=== PATIENT | male | born 1975 | race Caucasian/White ===

== ENCOUNTER 2019-01-20 19:18 | Emergency (ER) | payer OTHER ==
[~2019-01-20] VITALS: Ht 188 cm; Wt 95.2 kg
[2019-01-20] MEDS ORDERED: VITAMIN D33000 UNIT PO (19:25)
--- NOTE | 2019-01-21 17:46 | EKG ---
[facility] [address] [facility] [place] [address] Signed Normal sinus rhythm Left axis deviation Abnormal ECG No previous ECGs available Confirmed by DAWN FERRARI DO ([id number]) on 01/21/2019 5:46:07 PM Electronically Signed By: DAWN FERRARI DO 01/21/19 1746 PATIENT NAME: MICHAELCHUCK SHASTASAVANNAH Electrocardiogram DATE OF : 75 PHYSICIAN: DAWN FERRARI DO REPORT #: [id number] REPORT IS CONFIDENTIAL AND NOT TO BE RELEASED WITHOUT AUTHORIZATION
== END 2019-01-20 20:31 | disposition home or self-care (01) ==
LOC: ED 19:18
DX: R07.89 Other chest pain (principal); Z87.891 Personal history of nicotine dependence; Z79.899 Other long term (current) drug therapy
CPT/HCPCS: 71045; 80053; 84484; 85025; 93005; 93010; 99285-25

== ENCOUNTER 2024-07-28 07:55 | Day surgery (SDC) | payer OTHER ==
[2024-07-26 09:26] VITALS: BP 132/87
[~2024-07-28] VITALS: Ht 185.4 cm; Wt 98.6 kg
[~2024-07-28 07:55] MED LIST: FIBER625 MG PO; IBLOOD GLUCOSE TEST STRIP 1 EA TEST VI PRN; LACTATED RINGER'S 1,000 ML IV SCH; LIDOCAINE HCL 1% 5 ML SDV INJ ONE; VITAMIN D33000 UNIT PO; propofoL 200 MG/20 ML VIAL ONE
[2024-07-28 08:28] VITALS: BP 149/103
[2024-07-28] MEDS ORDERED: ondansetron HCL 4 MG/2 ML VIAL ONE (09:06)
[2024-07-28] MEDS ORDERED: LACTATED RINGER'S 1,000 ML IV ONE (09:27)
--- NOTE | 2024-07-28 10:02 | NUR ---
07/28/24 Veronica Granados Joana 0932- PT PRESENTS TO PACU, LEFT LATERAL POSITION. OPA AND NPA IN LEFT NARE, BREATHING EVEN AND NON LABORED, O2 AT 6L PER MASK. ABD SOFT, NON DISTENDED. PT NON REACTIVE TO STIMULUS AT THIS TIME, LR INFUSING TO RH IV. ALL MONITORS IN PLACE. 0943- PT WAKES ON OWN, REACHES FOR OPA AND NPA REMOVED AT THIS TIME. PT PUSHING AT O2 MASK, REMOVED AT THIS TIME TO ROOM AIR. 1ST LITER LR COMPLETE, SECOND ONE STARTED. PT C/O ABD CRAMPING, ENCOURAGED TO PASS GAS, PT IS SUCCESSFUL. 1000- PT AWAKE OFF AND ON, WORKING ON PASSING GAS. VERY RESPONSIVE AT THIS TIME. REPORTS PAIN IMPROVING WITH PASSING GAS. NO SIGNS OF DISTRESS.
[2024-07-28] MEDS ORDERED: droPERidol 5 MG/2 ML VIAL IV PRN (10:15)
[2024-07-28 10:42] VITALS: BP 143/94
--- NOTE | 2024-07-28 10:58 | OR ---
[facility] [address] [place], [place] [address] Signed DATE OF OPERATION: 07/28/2024 SURGEON: Aaln Sandhu MD PREOPERATIVE DIAGNOSES: 1. Intermittent anal pain with bowel movements. 2. Intermittent rectal bleeding. 3. Guaiac-positive stool. 4. Chronic constipation. 5. Hemorrhoids. 6. Maternal grandmother with colon cancer. 7. Paternal great aunt with colon cancer. 8. Father with colonic polyps. POSTOPERATIVE DIAGNOSES: 1. 3 mm polyp at 6 cm in rectum. 2. Tortuous sigmoid colon. 3. Moderate internal hemorrhoids. PROCEDURE: Colonoscopy with hot biopsy. ESTIMATED BLOOD LOSS: None. INDICATIONS: Cornell is a 48-year-old gentleman, asked to see me for a colonoscopy. He has been having intermittent anal pain with bowel movements. He said he uses lots of fiber and keeps himself well hydrated. He has learned not to push with his bowel movements. That made the pain much less. He is pretty certain he has hemorrhoids. There is some concern obviously that he might have an anal fissure. He said he does see a little blood associated with the stool once in a while. He gave a stool sample and it came back guaiac positive. He spoke of his chronic constipation and the hemorrhoids. He is aware of Mira[employer]X as well. He came to the office with his . He tells me that his maternal grandmother had colon cancer. A paternal great aunt also had colon cancer. His father had colonic polyps. He said this would be his first colonoscopy. He said he has a tremendous amount of anxiety and back pain and he has to use marijuana on a regular basis. In fact, today was challenging for him not to say the least. In the office, I gave him a pamphlet on colonoscopy. I also gave him a brochure on hemorrhoids and anal fissures. We talked about the medical versus surgical treatment for anal Electronically Signed By: ALAN SANDHU MD 07/28/24 1058 PATIENT NAME: CORNELL RODRIGUEZ OPERATIVE REPORT DATE OF : 75 REPORT #: [id number] PHYSICIAN: ALAN SANDHU MD PCP: JIL PASCAL REPORT IS CONFIDENTIAL AND NOT TO BE RELEASED WITHOUT AUTHORIZATION [facility] [address] [place] [id number] Signed fissures. He is already doing a good job in that regard. We also reviewed the written instructions for the bowel prep line by line. He understands that given his daily marijuana use, we are going to need monitored anesthesia care with propofol infusion. In that regard, he needed preoperative blood work and an EKG. He had expressed understanding and wished to proceed. He understands an adult person has to take him home afterwards. He had expressed understanding and wished to proceed. DESCRIPTION OF PROCEDURE: Cornell was taken into our endoscopy suite and placed in the left lateral decubitus position. He took a very large amount of propofol to put him asleep and keep him asleep during the procedure. Initially, we looked he had very minimal if any external hemorrhoids. Even with our light, we could not see any obvious break in the skin in the posterior anterior midline. However, after the digital rectal exam, he does have fairly significant sphincter tone despite the propofol infusion and then when I looked again he had just a superficial break in the posterior midline from my index finger. There were no masses. The adult colonoscope was introduced and advanced all around into the cecum under direct visualization of the camera. It took extra sedation and abdominal compression to get the scope right up to the proximal right colon. We could easily see the ileocecal valve. He had just enough liquid stool in the cecum, I could not quite see the appendiceal orifice. The scope was then slowly withdrawn. We took several pictures throughout for photodocumentation. He has a somewhat tortuous sigmoid colon and the scope had been buckling in that area. We did not see any diverticula. The rectum was unremarkable except for a tiny 3 mm polyp. We removed it easily with the help of hot biopsy forceps up at 6 cm. Upon retroflexion of the scope, he does have mildly irritated internal hemorrhoids. After this, the gas was suctioned out and the colonoscope removed. Cornell tolerated the procedure quite well. RECOMMENDATIONS: I will see Cornell back in my office in 7 to 14 days to review his pathology results and review anal fissures with him. It looks like he is suffering with an intermittent but very shallow superficial posterior midline anal fissure that heals over. Alan Sandhu MD [facility] /[id number] Electronically Signed By: ALAN SANDHU MD 07/28/24 1058 PATIENT NAME: CRONELL RODRIGUEZ OPERATIVE REPORT DATE OF : 75 REPORT #: [id number] PHYSICIAN: ALAN SANDHU MD PCP: JIL PASCAL REPORT IS CONFIDENTIAL AND NOT TO BE RELEASED WITHOUT AUTHORIZATION [facility] [address] [place], [place] [address] Signed cc: MD Jil Meek PA Copies: ALAN SANDHU MD, LINDA PA ~ Electronically Signed By: ALAN SANDHU MD 07/28/24 1058 PATIENT NAME: CORNELL RODRIGUEZ OPERATIVE REPORT DATE OF : 75 REPORT #: [id number] PHYSICIAN: ALAN SANDHU MD PCP: JIL PASCAL REPORT IS CONFIDENTIAL AND NOT TO BE RELEASED WITHOUT AUTHORIZATION
--- NOTE | 2024-07-30 13:27 | PATH ---
[facility] [address] [place], [place] [address] Signed SPECIMEN(S): A COLON POLYP AT 7 CM SPECIMEN SOURCE: A. COLON POLYP AT 7 CM CLINICAL HISTORY: Anal pain, chronic constipation, hemorrhoids, family CA, internal hemorrhoids FINAL PATHOLOGIC DIAGNOSIS: Colon polyp at 7 cm, biopsy: - Hyperplastic polyp. AMB MICROSCOPIC EXAMINATION: Histologic sections of all submitted blocks are examined by light microscopy. These findings, together with the gross examination, support the pathologic diagnosis. GROSS DESCRIPTION: The specimen, labeled and designated "Martin, colon polyp at 7 cm," is received in formalin and consists of one dodge soft tissue fragment, 0.3 cm. Entirely submitted in (A1). VB (under the direct supervision of a pathologist) The Gross Description was prepared using a voice recognition system. The report was reviewed for accuracy; however, sound-alike word errors, addition and/or deletions may occur. If there is any question about this report, please contact Client Services. ADDITIONAL NOTES: Immunohistochemical and/or in situ hybridization studies if performed in this case included appropriate positive controls that reacted as expected. This test was developed and its performance characteristics determined by [facility]. It has not been cleared or approved by the U.S. Food and Drug Administration. The FDA has determined that such clearance or approval is not necessary. This test is used for clinical purposes. It should not be regarded as investigational or for research. [facility] is certified under the Clinical Laboratory Improvement Amendments of 1988 (CLIA) as qualified to perform high complexity clinical laboratory testing. PATIENT NAME: CHUCK RODRIGUEZ PATHOLOGY DATE OF : 75 REPORT #: [id number] PHYSICIAN: GEORGE TAVARES PCP: JULIAN PASCAL REPORT IS CONFIDENTIAL AND NOT TO BE RELEASED WITHOUT AUTHORIZATION [address], [place] [address] Signed PERFORMING LABORATORY: Technical component was performed by [facility], [address] [place] [address] (CLIA# [id number]). Professional interpretation was performed by [facility] [address] [id number] Diagnostician: Kelsie Chau MD Pathologist Electronically Signed 07/30/2024 Copies: ~ PATIENT NAME: CHUCK RODRIGUEZ PATHOLOGY DATE OF : 75 REPORT #: [id number] PHYSICIAN: GEORGE TAVARES PCP: JULIAN PASCAL REPORT IS CONFIDENTIAL AND NOT TO BE RELEASED WITHOUT AUTHORIZATION
== END 2024-07-28 10:55 | disposition home or self-care (01) ==
LOC: DS 07:55
PROVIDERS: ATTEND Colon & Rectal Surgery
PROC: 0DBP8ZX Excision of Rectum, Via Natural or Artificial Opening Endoscopic, Diagnostic (ICD-10-PCS; principal; 2024-07-28 09:00)
DX: K63.5 Polyp of colon (principal); K64.8 Other hemorrhoids; K62.1 Rectal polyp; K63.89 Other specified diseases of intestine; I10 Essential (primary) hypertension; Z79.899 Other long term (current) drug therapy; K59.00 Constipation, unspecified; K62.5 Hemorrhage of anus and rectum; Z80.0 Family history of malignant neoplasm of digestive organs; Z83.719 Family history of colon polyps, unspecified
CPT/HCPCS: 00811; J1790; J2405; J2704; J7121